=== PATIENT | male | born 1965 | race Caucasian/White ===

== ENCOUNTER → 2018-03-12 09:52 | Outpatient (CLI) | payer OTHER, SELFPAY ==
[2018-03-12 10:53] LABS: Hematocrit 48.9 % (40-54); Hemoglobin 16.5 g/dl (13.0-16.5); Mean Corp Hgb Conc 33.7 g/gl (32-36); Mean Corpuscular Hgb 29.3 pg (27.0-32.0); Mean Corpuscular Volume 86.7 fL (80-94); Mean Platelet Vol. 9.8 fl (6.2-12.0); Platelet Count 169 K/mm3 (150-450); RBC Distribution Width CV 12.6 % (11.6-14.6); RBC Distribution Width SD 40.3 fl (35.1-43.9); Red Blood Count 5.64 M/mm3 (4.6-6.2); Scan Indicated on CBC? Y/N NO; White Blood Count 4.4 K/mm3 (4.4-11.0)
[2018-03-12 11:23] LABS: ALB/GLOB Ratio 1.2 RATIO (0.9-2.4); AST(SGOT) 13 U/L (15-37); Alanine Aminotransfer ALT/SGPT 34 U/L (16-61); Albumin, Serum 4.1 g/dL (3.2-5.0); Alkaline Phosphatase 43 U/L (45-117); Anion Gap 7 (5-15); BUN 22 mg/dL (7-18); BUN/Creat Ratio 21.4 RATIO (10-20); Calcium,Total 8.9 mg/dL (8.5-10.1); Chloride 105 mmol/L (98-107); Cholesterol 213 mg/dL (200); Creatinine, Serum 1.03 mg/dL (0.70-1.30); EST Glomerular Filtration Rate 81 mL/min (>60); Est Glom Filt Rate - Afr Amer 98 mL/min (>60); Globulin 3.3 g/dL (2.2-4.2); Glucose 98 mg/dL (74-106); High Density Lipoprotein 33 mg/dL; PSA,Total - Annual Screen 1.52 ng/mL (0.00-4.00); Potassium 4.5 mmol/L (3.5-5.1); Protein, Total 7.4 g/dL (6.4-8.2); Sodium Level 140 mmol/L (136-145); Triglycerides 117 mg/dL; Very Low Density Lipoprotein 23 mg/dL (5-40)
== END ==
DX: Z00.00 Encounter for general adult medical examination without abnormal findings (principal)
CPT/HCPCS: 36415; 80053; 80061; 84153; 85027; G0103